=== PATIENT | male | born 1945 | race Caucasian/White ===

== ENCOUNTER → 2016-07-17 | Outpatient (CLI) | payer OTHER ==
[~2016-07-17] MED LIST: "\\\"BP MED\\\""; ADVAIR 500-501 EACH IH; ADVAIR 500/501 DISK IH; ADVIL,NUPRIN,M200 MG PO; ALPRAZOLAM0.5 MG PO; ASCORBIC ACID500 M3 PO; ASPIRIN325 MG PO; AZITHROMYCIN500 M1 PO; CEFDINIR300 MG PO; DELTASONE1 MG PO; HYDROCHLOROTH12.5 M3 PO; LEVAQUIN500 MG PO; LISINOPRIL20 MG PO; LISINOPRIL40 MG PO; MUCINEX1200 MG PO; PREDNISONE10 MG PO; PREDNISONE20 MG PO; PREDNISONE5 MG PO; PROAIR HFA8.5 GM IH; PROVENTIL,2.5 MG/3 M IH; PROVENTIL,200 INHALA IH; SPIRIVA1 INHALATI IH; TRAZODONE HCL50 MG PO; VENTOLIN HFA18 GM IH; ZESTRIL40 MG PO; ZITHROMAX TRI-500 MG PO; Zestril,Prinivil PO
== END | disposition home or self-care (01) ==
LOC: RAD 13:25
DX: J84.10 Pulmonary fibrosis, unspecified (principal)
CPT/HCPCS: 71020